=== PATIENT | male | born 1985 | race African-American/Black ===

== ENCOUNTER 2021-08-27 17:48 | Emergency (ER) | payer BC, SELFPAY ==
[2021-08-27 18:20] VITALS: BP 132/87; PULSE 98; RESP 18; TEMP 36.7; O2SAT 99; BMI 39.6
--- NOTE | 2021-08-27 22:09 | PC.NURSE ---
pt called and not present in the waiting room.
== END 2021-08-27 22:27 | disposition left against medical advice (07) ==
PROVIDERS: Emergency Provider Emergency Medicine
DX: R10.9 Unspecified abdominal pain (principal)
CPT/HCPCS: 99281; 99282

== ENCOUNTER 2021-08-27 22:58 | Emergency (ER) | payer BC, SELFPAY ==
[2021-08-27 23:39] LABS: MANUAL DIFF FLAG NO
[2021-08-27 23:41] LABS: Basophils Percent Auto 0.3 % (0-2); Eosinophils Absolute Auto 0.1 X10*3/uL (0.0-0.4); Eosinophils Percent Auto 1.3 % (0-4); Hematocrit 44.1 % (42-52); Hemoglobin 14.6 g/dl (14.0-18.0); Imm Gran Abs Auto 0.01 X10*3/uL (0.00-0.03); Imm Gran Pct Auto 0.1 % (0.0-0.4); Lymphocytes Absolute Auto 3.8 X10*3/uL (1.2-4.9); Lymphocytes Percent Auto 54.2 % (20-40); Mean Corpuscular HGB Conc 33.1 g/dl (31.0-36.0); Mean Corpuscular Volume 90.7 fL (80-98); Monocytes Absolute Auto 0.5 X10*3/uL (0.1-1.2); Monocytes Percent Auto 7.2 % (2-11); Neutrophils Absolute Auto 2.6 X10*3/uL (2.0-8.3); Neutrophils Percent Auto 36.9 % (45-73); Platelet Count 254 X10*3/uL (160-400); Red Blood Count 4.86 X10*6/uL (4.60-5.80); Red Cell Distribution Width 11.9 % (11.0-16.0); White Blood Count 7.1 X10*3/uL (4.8-10.8)
[2021-08-27 23:58] LABS: Alanine Aminotransferase 37 U/L (0-40); Albumin Level 4.2 g/dL (3.5-5.0); Alkaline Phosphatase 66 U/L (39-117); Anion Gap 12 (12-20); Aspartate Amino Transferase 20 U/L (5-37); Bilirubin Direct 0.2 mg/dL (0.0-0.5); Bilirubin Total 0.7 mg/dL (0.0-1.0); Blood Urea Nitrogen 15 mg/dL (9-16); Carbon Dioxide 26 mmol/L (22-29); Chloride 106 mmol/L (96-108); Estimated Glomerular Filt Rate 53; Glucose Random 131 mg/dL (60-115); Lipase 41 U/L (8-78); Potassium 4.3 mmol/L (3.3-5.1); Sodium 140 mmol/L (135-145); Total Protein 7.3 g/dL (6.5-8.0)
[2021-08-28 00:42] VITALS: BP 130/95; PULSE 77; RESP 20; TEMP 36.4; O2SAT 98; BMI 40.8
[2021-08-28 02:00] VITALS: BP 139/104; PULSE 81; RESP 15; TEMP 36.7; O2SAT 98
[2021-08-28 02:41] LABS: Appearance Urine CLEAR; Color Urine YELLOW; Glucose Urine UA NEG (NEG); Leukocyte Esterase Urine NEG (NEG); Nitrite Urine NEG (NEG); Specific Gravity - Urine 1.025 (1.005-1.025); Urine Blood NEG (NEG); Urine Ketones NEG (NEG); Urine Protein NEG (NEG-TRACE)
[2021-08-28 02:44] LABS: UACC Culture Trigger NO
[2021-08-28 04:04] VITALS: BP 148/94; PULSE 82; RESP 16; O2SAT 98
--- NOTE | 2021-08-28 05:09 | PC.NURSE ---
Pt presented to nurses' station expressing frustration with extended wait time prior to being seen by provider. This RN explains to pt that the provider will see him as soon as he's able. Pt shrugs and says I've been here since yesterday. I just want to go to bed. This RN explains the benefits of staying in ED for provider eval. Pt expresses understanding, then turns to exit department.
== END 2021-08-28 05:12 | disposition left against medical advice (07) ==
PROVIDERS: Emergency Provider Emergency Medicine
DX: R10.9 Unspecified abdominal pain (principal); Z79.899 Other long term (current) drug therapy
CPT/HCPCS: 36415; 80053; 81003; 82248; 83690; 85025; 99283; 99284